=== PATIENT | female | born 1990 | race Caucasian/White ===

== ENCOUNTER 2018-02-15 05:48 | Emergency (ER) | payer OTHER ==
[~2018-02-15] VITALS: Ht 167.6 cm; Wt 90.7 kg
[2018-02-15] MEDS ORDERED: ZYRTEC10 M5 PO (06:01)
[2018-02-15 06:22] LABS: ABSOLUTE BASOPHILS 0.1 thou/uL (0.0-0.2); ABSOLUTE EOSINOPHILS 0.2 thou/uL (0.0-0.7); ABSOLUTE LYMPHOCYTES 3.1 thou/uL (0.8-5.3); ABSOLUTE MONOCYTES 0.6 thou/uL (0.0-1.2); ABSOLUTE NEUTROPHILS 4.5 thou/uL (1.6-8.1); BASOPHILS 0.9 %; EOSINOPHILS 1.9 %; LYMPHOCYTES 36.3 %; MCH 27.6 pg (26.0-34.0); MCHC 32.5 g/dL (28.0-37.0); MONOCYTES 7.4 %; MPV 6.9 fl. (7.2-11.1); NUCLEATED RBCS 0 /100WBC; PLATELET COUNT* 346 thou/uL (150-400); POLYS 53.5 %; RBC 5.06 mil/uL (4.20-5.00); RDW-CV 16.3 % (10.5-14.5); WBC 8.5 thou/uL (4.0-11.0)
[2018-02-15 06:44] LABS: CALCIUM 8.6 mg/dL (8.5-10.1); CREATININE 0.8 mg/dL (0.6-1.3); POTASSIUM 3.6 mmol/L (3.5-5.1)
[2018-02-15 06:49] LABS: ALBUMIN 3.6 g/dL (3.4-5.0); TOTAL BILIRUBIN 0.6 mg/dL (<0.1-1.0); TOTAL PROTEIN 7.7 g/dL (6.4-8.2)
[2018-02-15] MEDS ORDERED: NORCO 5-325 TA1 EACH PO (08:56)
[2018-02-15] MEDS ORDERED: ZOFRAN ODT4 MG PO (08:56)
[2018-02-15] MEDS ORDERED: FLAGYL500 MG PO (08:56)
[2018-02-15 09:11] VITALS: BP 105/67
== END 2018-02-15 09:12 | disposition home or self-care (01) ==
LOC: M.ERS 05:48
PROVIDERS: Emergency Medicine Emergency Medical Services
DX: K80.80 Other cholelithiasis without obstruction (principal)

== ENCOUNTER 2018-03-24 20:50 | Inpatient (IN) | payer OTHER ==
[~2018-03-24] VITALS: Ht 165.1 cm; Wt 91.6 kg
[~2018-03-24 20:50] MED LIST: FLAGYL500 MG PO; NORCO 5-325 TA1 EACH PO; ZOFRAN ODT4 MG PO; ZYRTEC10 M5 PO
[2018-03-24 21:04] VITALS: BP 137/83
[2018-03-24 21:29] LABS: ABSOLUTE BASOPHILS 0.1 thou/uL (0.0-0.2); ABSOLUTE LYMPHOCYTES 1.7 thou/uL (0.8-5.3); ABSOLUTE NEUTROPHILS 8.6 thou/uL (1.6-8.1); BASOPHILS 0.6 %; EOSINOPHILS 0.4 %; HEMATOCRIT 44.2 % (37.0-47.0); HEMOGLOBIN 14.5 gm/dL (12.0-15.0); LYMPHOCYTES 14.7 %; MCH 28.4 pg (26.0-34.0); MCHC 32.9 g/dL (28.0-37.0); MCV 86.3 fL (80.0-100.0); MONOCYTES 8.8 %; MPV 7.3 fl. (7.2-11.1); NUCLEATED RBCS 0 /100WBC; PLATELET COUNT* 317 thou/uL (150-400); POLYS 75.5 %; RBC 5.12 mil/uL (4.20-5.00); RDW-CV 14.6 % (10.5-14.5); WBC 11.4 thou/uL (4.0-11.0)
[2018-03-24 21:41] LABS: CALCIUM 8.6 mg/dL (8.5-10.1); CREATININE 0.8 mg/dL (0.6-1.3); POTASSIUM 3.7 mmol/L (3.5-5.1)
[2018-03-24 21:45] LABS: ALBUMIN 3.8 g/dL (3.4-5.0); TOTAL BILIRUBIN 0.7 mg/dL (<0.1-1.0)
[2018-03-25 00:38] VITALS: BP 129/77
[2018-03-25 00:41] LABS: URINE BILIRUBIN NEGATIVE (Negative); URINE BLOOD NEGATIVE (Negative); URINE CLARITY CLEAR; URINE COLOR YELLOW; URINE GLUCOSE-RANDOM NEGATIVE (Negative); URINE KETONES NEGATIVE (Negative); URINE LEUKOCYTES NEGATIVE (Negative); URINE NITRITE NEGATIVE (Negative); URINE PROTEIN NEGATIVE (Negative); URINE SPECIFIC GRAVITY <= 1.005 (1.005-1.030); URINE UROBILINOGEN 0.2 E.U./dl (0.2-1.0)
[2018-03-25 08:29] VITALS: BP 112/56
[2018-03-25 16:00] VITALS: BP 116/48
[2018-03-25 20:00] VITALS: BP 120/70
[2018-03-26 07:10] LABS: HEPATITIS B SURFACE AG Negative (Negative)
[2018-03-26 08:45] VITALS: BP 137/76
[2018-03-26 10:23] LABS: ALBUMIN 3.5 g/dL (3.4-5.0); DIRECT BILIRUBIN 0.2 mg/dL (<0.1-0.3); TOTAL BILIRUBIN 0.6 mg/dL (<0.1-1.0)
[2018-03-26 11:06] VITALS: BP 137/76
[2018-03-26 11:13] VITALS: BP 137/76
[2018-03-26 11:14] VITALS: BP 137/76
[2018-03-26 11:39] VITALS: BP 137/76
[2018-03-28 10:10] LABS: ANA INTERPRETATION Positive (Negative)
== END 2018-03-26 12:51 | disposition home or self-care (01) | DRG 371 ==
LOC: M.ERS 20:50 → M.TBA-ER 23:11 → M.ORTHSURG 23:11
PROVIDERS: Internal Medicine; Physician Assistant; Surgery; ADMIT Internal Medicine
DX: A04.9 Bacterial intestinal infection, unspecified (principal); K85.90 Acute pancreatitis without necrosis or infection, unspecified; R65.10 Systemic inflammatory response syndrome (SIRS) of non-infectious origin without acute organ dysfunction; K75.9 Inflammatory liver disease, unspecified; K80.20 Calculus of gallbladder without cholecystitis without obstruction; R74.0 Nonspecific elevation of levels of transaminase and lactic acid dehydrogenase [LDH]; Z83.79 Family history of other diseases of the digestive system; Z79.899 Other long term (current) drug therapy